=== PATIENT | female | born 1980 | race Caucasian/White ===

== ENCOUNTER 2020-09-13 11:10 | Outpatient (CLI) | payer MEDICARE, MEDICAID | END 2020-09-13 23:59 | disposition home or self-care (01) | LOC: RAD 11:10 | DX: R94.01 Abnormal electroencephalogram [EEG] (principal); G40.909 Epilepsy, unspecified, not intractable, without status epilepticus; F84.0 Autistic disorder | CPT/HCPCS: 95819 ==